=== PATIENT | female | born 1965 | race Caucasian/White ===

== ENCOUNTER → 2016-07-26 | Outpatient (CLI) | payer BC ==
[~2016-07-26] MED LIST: ASPI-390 PO; FISHOIL PO; MINOXIDIL TOP; MULT-188 PO; MULTTAB58 PO; ONDA4TAB46 PO
== END | disposition home or self-care (01) ==
LOC: C.PAPS 10:39
PROVIDERS: ATTEND Obstetrics & Gynecology
DX: Z01.419 Encounter for gynecological examination (general) (routine) without abnormal findings (principal)